=== PATIENT | male | born 1995 | race Hispanic/Latino ===

== ENCOUNTER 2018-02-25 13:35 | Emergency (ER) | payer SELFPAY | END 2018-02-25 14:52 | disposition home or self-care (01) | LOC: ERS 13:35 | DX: K02.9 Dental caries, unspecified (principal); F17.210 Nicotine dependence, cigarettes, uncomplicated | CPT/HCPCS: 99282 ==

== ENCOUNTER 2018-03-02 19:47 | Emergency (ER) | payer OTHER, SELFPAY ==
--- NOTE | 2018-03-02 20:20 | RAD ---
CHEST TWO VIEWS: 03/02/18 HISTORY: Chest pain. FINDINGS: The heart size is normal. The lungs are clear. IMPRESSION: No acute intrathoracic disease. POS: [facility]
[2018-03-02 22:00] LABS: Bilirubin Small (Negative); Blood, Urine Negative (Negative); Clarity CLEAR (Clear); Glucose, Urine (Dipstick) Negative (Negative); Leukocyte Negative (Negative); Nitrite Negative (Negative); Protein, Urine (Dipstick) Negative (Neg-Trace); Specific Gravity, Urine 1.027 (1.002-1.036)
== END 2018-03-02 22:46 | disposition home or self-care (01) ==
LOC: ERS 19:47
DX: M54.5 Low back pain (principal); F17.210 Nicotine dependence, cigarettes, uncomplicated; V89.2XXA Person injured in unspecified motor-vehicle accident, traffic, initial encounter
CPT/HCPCS: 71046; 81003